=== PATIENT | female | born 1950 | race Caucasian/White ===

== ENCOUNTER 2016-10-25 23:11 | Emergency (ER) | payer MEDICAID ==
[~2016-10-25] VITALS: Ht 157.5 cm; Wt 72.6 kg
[~2016-10-25 23:11] MED LIST: ALEN70TA2 PO; ALPR0.25 PO; BUPRTAB3 PO; CYCL10TA3 PO; EST0625T PO; LEVO500T3 PO; LURA40TA PO; NOR5T PO; SIMV10TA84 PO; ZOLP-158 PO
[2016-10-25 23:53] LABS: Basophils # (auto) 0.1 uL; Basophils % (auto) 0.7 % (0.0-2.0); Eosinophils # (auto) 0.3 uL; Eosinophils % (auto) 3.4 % (0.0-7.0); Hematocrit 44.2 % (36.0-46.0); Hemoglobin 15.2 g/dL (12.2-16.2); Mean Corpuscular Hemoglobin 30.2 pg (28.0-32.0); Mean Corpuscular Hgb Conc. 34.5 g/dL (32.0-36.0); Mean Corpuscular Volume 87.6 fL (80.0-100.0); Mean Platelet Volume 9.4 fL (7.4-10.4); Monocytes % (auto) 11.1 % (0.0-12.0); Neutrophils # (auto) 4.8 uL; Neutrophils % (auto) 51.8 % (37.0-80.0); Platelet Count (auto) 296 10^3/uL (140-450); Red Cell Distribution Width 12.8 % (11.6-16.0); White Blood Cell 9.2 10^3/uL (4.4-10.8)
[2016-10-26 00:08] LABS: INR 0.99 (0.9-1.15); Partial Thromboplastin Time 25.7 sec (22.64-33.71); Prothrombin Time 10.8 sec (9.37-12.3)
[2016-10-26] MEDS ORDERED: LORazepam 2MG/ML-1ML VIAL IV ONE (00:30)
[2016-10-26 00:33] LABS: Albumin 3.2 g/dL (3.4-5.0); Anion Gap 13 (5-15); Aspartate Aminotransferase 18 U/L (15-37); BUN/Creatinine Ratio 9.2; Blood Urea Nitrogen 7 mg/dL (7-18); Calcium 9.1 mg/dL (8.5-10.1); Carbon Dioxide 20 mmol/L (21-32); Chloride 113 mmol/L (98-107); GFR African American 99 mL/min; GFR Non-African American 82 mL/min; Glucose 107 mg/dL (74-106); Potassium 3.5 mmol/L (3.5-5.1); Sodium 146 mmol/L (136-145)
[2016-10-26 00:36] LABS: Alkaline Phosphatase 74 U/L (45-117); Bilirubin, Total 0.4 mg/dL (0.2-1.0); Total Protein 7.2 g/dL (6.4-8.2)
[2016-10-26 04:49] VITALS: BP 113/67
[2016-10-26 06:35] LABS: Urine Bilirubin Negative (Negative); Urine Blood TRACE /uL (Negative); Urine Color Yellow (Yellow); Urine Glucose Normal (Normal); Urine Ketone Negative (Negative); Urine Mucus FEW (None Seen); Urine Nitrite Negative (Negative); Urine RBC 26 /hpf (0 - 4); Urine Squamous Epithelial Cell FEW /hpf (<5); Urine Urobilinogen Normal (Negative); Urine pH 5.5 (5.0-8.0)
== END 2016-10-26 05:09 | disposition home or self-care (01) ==
LOC: EDBD 23:11 → ER 23:16
DX: G47.00 Insomnia, unspecified (principal); F41.9 Anxiety disorder, unspecified; F31.9 Bipolar disorder, unspecified; K21.9 Gastro-esophageal reflux disease without esophagitis; E78.5 Hyperlipidemia, unspecified; Z79.899 Other long term (current) drug therapy
CPT/HCPCS: 36415; 71010; 80053; 81001; 84484; 85025; 85610; 85730; 93005; 94761; 96374; 99285; J2060

== ENCOUNTER 2017-06-06 08:46 | Emergency (ER) | payer MEDICAID ==
[~2017-06-06] VITALS: Ht 167.6 cm; Wt 63.5 kg
[~2017-06-06 08:46] MED LIST changes: +HYDR-4683 PO; +LEVO500T21 PO; -LEVO500T3 PO; -NOR5T PO
[2017-06-06 09:44] LABS: Basophils # (auto) 0.2 uL; Basophils % (auto) 2.4 % (0.0-2.0); Eosinophils # (auto) 0.6 uL; Eosinophils % (auto) 8.8 % (0.0-7.0); Hematocrit 46.3 % (36.0-46.0); Hemoglobin 15.6 g/dL (12.2-16.2); Lymphocytes # (auto) 1.7 uL; Lymphocytes % (auto) 25.8 % (10.0-50.0); Mean Corpuscular Hemoglobin 29.8 pg (28.0-32.0); Mean Corpuscular Hgb Conc. 33.7 g/dL (32.0-36.0); Mean Corpuscular Volume 88.3 fL (80.0-100.0); Monocytes # (auto) 0.4 uL; Monocytes % (auto) 6.1 % (0.0-12.0); Neutrophils # (auto) 3.7 uL; Neutrophils % (auto) 56.9 % (37.0-80.0); Nucleated Red Blood Cells % 0.1 %; Platelet Count (auto) 320 10^3/uL (140-450); Red Blood Cells 5.25 10^6/uL (4.0-5.20); Red Cell Distribution Width 12.9 % (11.8-14.3); White Blood Cell 6.5 10^3/uL (4.4-10.8)
[2017-06-06 10:15] LABS: Anion Gap 9 (5-15); BUN/Creatinine Ratio 8.9; Blood Urea Nitrogen 8 mg/dL (7-18); Calcium 8.9 mg/dL (8.5-10.1); Carbon Dioxide 25 mmol/L (21-32); Chloride 103 mmol/L (98-107); GFR African American 81 mL/min; GFR Non-African American 67 mL/min; Glucose 134 mg/dL (74-106); Potassium 4.1 mmol/L (3.5-5.1); Sodium 137 mmol/L (136-145)
[2017-06-06 10:30] VITALS: BP 116/73
[2017-06-06] MEDS ORDERED: methylPREDNISolone SOD SUCC 125 MG/2 ML VL IM ONE (10:45)
[2017-06-06] MEDS ORDERED: IPRATROPIUM BROM 0.5 MG/2.5ML INH SOL NEB ONE (10:45)
[2017-06-06] MEDS ORDERED: ALBUTEROL SULF 2.5 MG/0.5ML(0.5%) NEB SOLN NEB ONE (10:45)
== END 2017-06-06 11:12 | disposition home or self-care (01) ==
LOC: ER 08:46 → EDBD 08:46 → ER 11:12
DX: J45.901 Unspecified asthma with (acute) exacerbation (principal); K21.9 Gastro-esophageal reflux disease without esophagitis; E78.5 Hyperlipidemia, unspecified; F17.210 Nicotine dependence, cigarettes, uncomplicated
CPT/HCPCS: 36415; 71046; 80048; 84484; 85025; 93005; 94640; 96372; 99285; J2930

== ENCOUNTER 2019-05-30 18:18 | Inpatient (IN) | payer OTHER, MEDICAID ==
[~2019-05-30] VITALS: Ht 157.5 cm; Wt 69.4 kg
[~2019-05-30 18:18] MED LIST changes: -HYDR-4683 PO; +HYDR-4833 PO
[2019-05-30] MEDS ORDERED: ALBUTEROL SULF 2.5 MG/0.5ML(0.5%) NEB SOLN HHN STA (19:22)
[2019-05-30] MEDS ORDERED: IPRATROPIUM BROM 0.5 MG/2.5ML INH SOL NEB ONE (19:30)
[2019-05-30] MEDS ORDERED: methylPREDNISolone SOD SUCC 125 MG/2 ML VL IV ONE (19:45)
[2019-05-30 19:57] LABS: Basophils # (auto) 0.1 uL; Basophils % (auto) 1.1 % (0.0-2.0); Eosinophils # (auto) 0.1 uL; Eosinophils % (auto) 1.2 % (0.0-7.0); Hematocrit 43.1 % (36.0-46.0); Hemoglobin 14.8 g/dL (12.2-16.2); Lymphocytes % (auto) 41.4 % (10.0-50.0); Mean Corpuscular Hemoglobin 29.8 pg (28.0-32.0); Mean Corpuscular Hgb Conc. 34.3 g/dL (32.0-36.0); Monocytes # (auto) 0.6 uL; Monocytes % (auto) 12.2 % (0.0-12.0); Neutrophils # (auto) 2.1 uL; Neutrophils % (auto) 44.1 % (37.0-80.0); Nucleated Red Blood Cells % 0.2 %; Platelet Count (auto) 208 10^3/uL (140-450); Red Blood Cells 4.95 10^6/uL (4.0-5.20); Red Cell Distribution Width 12.4 % (11.8-14.3); White Blood Cell 4.7 10^3/uL (4.4-10.8)
[2019-05-30 20:21] LABS: INR 0.97 (0.9-1.15); Partial Thromboplastin Time 30.2 sec (23.64-32.05)
[2019-05-30 20:22] LABS: Calcium 8.6 mg/dL (8.5-10.1); Chloride 102 mmol/L (98-107); Potassium 3.6 mmol/L (3.5-5.1); Sodium 136 mmol/L (136-145)
[2019-05-30 20:33] LABS: Alanine Aminotransferase 44 U/L (13-56); Albumin 3.5 g/dL (3.4-5.0); Alkaline Phosphatase 76 U/L (45-117); Anion Gap 8 (5-15); Aspartate Aminotransferase 48 U/L (15-37); BUN/Creatinine Ratio 10.7; Bilirubin, Total 0.6 mg/dL (0.2-1.0); Blood Urea Nitrogen 8 mg/dL (7-18); Carbon Dioxide 26 mmol/L (21-32); GFR African American 99 mL/min; GFR Non-African American 82 mL/min; Glucose 114 mg/dL (74-106); Total Protein 7.2 g/dL (6.4-8.2)
[2019-05-30] MEDS ORDERED: TEMAZEPAM 15 MG CAP PO PRN (22:45)
[2019-05-31] MEDS: ALBUTEROL SULF 2.5 MG/0.5ML(0.5%) NEB SOLN NEB SCH ×4 (00:56→18:45)
[2019-05-31] MEDS: ACETAMINOPHEN 325 MG TAB PO PRN (03:04)
[2019-05-31] MEDS: guaiFENesin-DM 100/10mg/5ml SYR PO PRN ×2 (04:13→20:21)
[2019-05-31] MEDS: IPRATROPIUM BROM 0.5 MG/2.5ML INH SOL NEB SCH ×3 (06:50→18:44)
--- NOTE | 2019-05-31 07:59 | NUR ---
Telemetry admit from ER TARAS COLVIN admitted to Medical Surgical unit after SBAR received. Patient oriented to DANIELE CREWS, RN primary RN, unit, room, bed, and unit policies regarding patient care and visiting hours. Patient placed on bedside oxygen, weighed by bedscale and encouraged to call if they need any assistance. All questions and concerns addressed, patient verbalized understanding.
[2019-05-31] MEDS: buPROPion HCL 75 MG TAB PO SCH ×2 (08:30→20:21)
[2019-05-31] MEDS: cefTRIAXone 1GM/50ML D5W 50 ML IV SCH (09:00)
[2019-05-31] MEDS: FAMOTIDINE 20 MG TAB PO SCH ×2 (10:00→23:20)
[2019-05-31] MEDS ORDERED: ALBUTEROL MEDNEB 2.5 mg/3ml NEB ONE (11:29)
[2019-05-31 13:00] VITALS: BP 112/53
[2019-05-31] MEDS ORDERED: methylPREDNISolone SOD SUCC 40 MG/ML VL IV ONE (15:00)
[2019-05-31] MEDS ORDERED: OSELTAMIVIR 75 MG CAP PO ONE (15:00)
[2019-05-31] MEDS ORDERED: SODIUM CHLORIDE 0.9% 1,000 ML IV SCH (15:00)
[2019-05-31] MEDS ORDERED: ALBUTEROL SULF 2.5 MG/0.5ML(0.5%) NEB SOLN NEB PRN (15:00)
[2019-05-31 17:00] VITALS: BP 137/65
[2019-05-31 22:00] VITALS: BP 134/70
[2019-05-31] MEDS: methylPREDNISolone SOD SUCC 40 MG/ML VL IV SCH (23:19)
[2019-05-31] MEDS: ATORVASTATIN 20 MG TAB PO SCH (23:20)
[2019-05-31] MEDS: OSELTAMIVIR 75 MG CAP PO SCH (23:20)
[2019-06-01] MEDS: ALBUTEROL SULF 2.5 MG/0.5ML(0.5%) NEB SOLN NEB SCH ×4 (00:58→18:57)
--- NOTE | 2019-06-01 00:58 | NUR ---
Respiratory note: PT REFUSED HHN TX AT THIS TIME. PT REQUESTED TO LET HER SLEEP. Addendum: 06/01/19 at 0104 by PARKER DAVILA JR, RT RT NO DISTRESS NOTED AT THIS TIME. HR 97 SPO2 94% ON 2L
[2019-06-01 05:16] VITALS: BP 136/72
[2019-06-01 06:26] LABS: Potassium 3.9 mmol/L (3.5-5.1)
[2019-06-01] MEDS: IPRATROPIUM BROM 0.5 MG/2.5ML INH SOL NEB SCH ×3 (06:35→18:57)
[2019-06-01 06:36] LABS: BUN/Creatinine Ratio 13.8; Calcium 8.2 mg/dL (8.5-10.1); Magnesium 2.2 mg/dL (1.6-2.6)
[2019-06-01] MEDS: buPROPion HCL 75 MG TAB PO SCH ×2 (06:46→19:44)
--- NOTE | 2019-06-01 07:30 | NUR ---
Opening Shift Note Assumed care of patient, awake and alert. No S/S of distress/SOB or pain. For safety patients bed is locked, in the lowest position with 2 side rails up and the call light is with in reach. l Instructed on POC and to call for assist PRN, will continue to monitor for any changes in condition. .
[2019-06-01 08:00] VITALS: BP 124/61
[2019-06-01 09:00] VITALS: BP 124/61
[2019-06-01] MEDS: cefTRIAXone 1GM/50ML D5W 50 ML IV SCH (09:04)
[2019-06-01] MEDS: FAMOTIDINE 20 MG TAB PO SCH ×2 (09:05→22:13)
[2019-06-01] MEDS: OSELTAMIVIR 75 MG CAP PO SCH ×2 (09:05→22:11)
[2019-06-01] MEDS: methylPREDNISolone SOD SUCC 40 MG/ML VL IV SCH ×2 (09:05→22:10)
--- NOTE | 2019-06-01 11:20 | NUR ---
Dr. Steele at bedside to assess patient and discuss the plan of care. Received orders, will document them and follow them through.
[2019-06-01] MEDS: SODIUM CHLORIDE 0.9% 1,000 ML IV SCH ×2 (12:33→20:05)
[2019-06-01] MEDS: FUROSEMIDE 20 MG/2 ML VIAL IV SCH ×2 (12:33→22:10)
[2019-06-01 13:00] VITALS: BP 129/69
[2019-06-01] MEDS: AZITHROMYCIN 500MG/ 250ML 250 ML IV SCH (14:24)
[2019-06-01 17:00] VITALS: BP 131/65
[2019-06-01] MEDS: ACETAMINOPHEN 325 MG TAB PO PRN (19:45)
[2019-06-01 21:52] VITALS: BP 128/70
[2019-06-01] MEDS: ATORVASTATIN 20 MG TAB PO SCH (22:11)
[2019-06-01] MEDS: guaiFENesin-DM 100/10mg/5ml SYR PO PRN (22:21)
[2019-06-02] MEDS: ALBUTEROL SULF 2.5 MG/0.5ML(0.5%) NEB SOLN NEB SCH ×3 (00:45→12:58)
--- NOTE | 2019-06-02 00:45 | NUR ---
Respiratory note: PT SEEN FOR SCHEDULED MED NEB TX AT 0045. PT REFUSED TX AT THIS TIME STATING THAT SHE WOULD LIKE TO REST. NO DISTRESS NOTED, PT WAS SLEEPING WHEN ENTERING THE ROOM. HR 96 RR 16 POX 94% ON ROOM AIR.
[2019-06-02] MEDS: guaiFENesin-DM 100/10mg/5ml SYR PO PRN ×2 (02:21→09:19)
--- NOTE | 2019-06-02 03:00 | NUR ---
Received report from DINA Urban and assumed care.
[2019-06-02 04:44] VITALS: BP 142/91
[2019-06-02] MEDS: SODIUM CHLORIDE 0.9% 1,000 ML IV SCH (05:57)
[2019-06-02] MEDS: buPROPion HCL 75 MG TAB PO SCH (06:21)
[2019-06-02 06:44] LABS: Basophils # (auto) 0 uL; Basophils % (auto) 0.2 % (0.0-2.0); Eosinophils # (auto) 0 uL; Hematocrit 39.7 % (36.0-46.0); Hemoglobin 13.8 g/dL (12.2-16.2); Lymphocytes # (auto) 1.2 uL; Lymphocytes % (auto) 15.9 % (10.0-50.0); Mean Corpuscular Hemoglobin 30.7 pg (28.0-32.0); Mean Corpuscular Hgb Conc. 34.8 g/dL (32.0-36.0); Mean Corpuscular Volume 88.3 fL (80.0-100.0); Monocytes # (auto) 0.7 uL; Monocytes % (auto) 9.2 % (0.0-12.0); Neutrophils # (auto) 5.8 uL; Neutrophils % (auto) 74.7 % (37.0-80.0); Nucleated Red Blood Cells % 0.1 %; Platelet Count (auto) 205 10^3/uL (140-450); Red Cell Distribution Width 12.5 % (11.8-14.3); White Blood Cell 7.8 10^3/uL (4.4-10.8)
[2019-06-02 07:03] LABS: Potassium 4.1 mmol/L (3.5-5.1)
[2019-06-02 07:14] LABS: BUN/Creatinine Ratio 14.9; Bilirubin, Total 0.4 mg/dL (0.2-1.0); Calcium 8.4 mg/dL (8.5-10.1); Magnesium 2.2 mg/dL (1.6-2.6); Phosphorus 2.9 mg/dL (2.5-4.90); Total Protein 6.7 g/dL (6.4-8.2)
--- NOTE | 2019-06-02 08:00 | NUR ---
Opening Shift Note Assumed care of patient, awake and alert, sitting up in bed. No S/S of distress/SOB or pain. Instructed on POC and to call for assist PRN, will continue to monitor for changes Q1hr and PRN.
[2019-06-02] MEDS: IPRATROPIUM BROM 0.5 MG/2.5ML INH SOL NEB SCH ×2 (08:02→12:58)
[2019-06-02] MEDS: cefTRIAXone 1GM/50ML D5W 50 ML IV SCH (08:36)
[2019-06-02 09:00] VITALS: BP 126/72
[2019-06-02] MEDS: AZITHROMYCIN 500MG/ 250ML 250 ML IV SCH (09:19)
[2019-06-02] MEDS: methylPREDNISolone SOD SUCC 40 MG/ML VL IV SCH (09:19)
[2019-06-02] MEDS: OSELTAMIVIR 75 MG CAP PO SCH (09:19)
[2019-06-02] MEDS: FAMOTIDINE 20 MG TAB PO SCH (09:19)
[2019-06-02] MEDS: FUROSEMIDE 20 MG/2 ML VIAL IV SCH (09:19)
[2019-06-02] MEDS: ACETAMINOPHEN 325 MG TAB PO PRN (09:32)
--- NOTE | 2019-06-02 11:03 | NUR ---
Hospitalist Rounding Dr. Cortes at bedside. Patient was told she would be discharged today, she then informed Dr. Cortes that she doesn't want her as her doctor anymore. MD notified patient that she will put her discharge order in and write prescriptions for home medications.
[2019-06-02] MEDS ORDERED: OSEL75CA11 PO (11:31)
[2019-06-02] MEDS ORDERED: AZIT500T PO (11:32)
[2019-06-02] MEDS ORDERED: ALBUAER3 IN (11:32)
[2019-06-02] MEDS ORDERED: DEXT1SYP9 PO (11:33)
[2019-06-02 12:05] VITALS: BP 126/72
--- NOTE | 2019-06-02 12:36 | NUR ---
Discharge Patient is discharged for home, she will make phone call and inform RN of last picker time.
--- NOTE | 2019-06-02 12:58 | NUR ---
Respiratory note: PT REFUSED Q6 TREATMENT. SHE SAID SHE IS GOING HOME. EXPLAINED THE BENEFITS OF TREATMENT AND TO HAVE RT PAGED IF SHE CHANGES HER MIND.
--- NOTE | 2019-06-02 15:02 | NUR ---
Discharge instructions given as ordered. Encourage to follow up with PMD as instructed. All questions and concerns addressed. Patient verbalized understanding. Medication reconciliation form completed and copy given to patient. IV removed with catheter intact and pressure dressing applied. Patient taken to vehicle via wheelchair with all personal belongings, accompanied by staff and family member. No distress noted at time of departure.
[2019-06-02] MEDS ORDERED: OSELTAMIVIR 30 MG CAP PO SCH (22:00)
[2019-06-02] MEDS ORDERED: OSELTAMIVIR 75 MG CAP PO SCH (22:00)
== END 2019-06-02 15:02 | disposition home or self-care (01) | DRG 193 ==
LOC: ER 18:20 → OVERFLOW 18:21 → WEST WING 05-31 07:59
PROVIDERS: ADMIT Nurse Practitioner; ATTEND Internal Medicine
DX: J10.1 Influenza due to other identified influenza virus with other respiratory manifestations (principal); J96.20 Acute and chronic respiratory failure, unspecified whether with hypoxia or hypercapnia; E87.3 Alkalosis; J45.901 Unspecified asthma with (acute) exacerbation; F41.9 Anxiety disorder, unspecified; F32.9 Major depressive disorder, single episode, unspecified; R00.0 Tachycardia, unspecified; J20.9 Acute bronchitis, unspecified; E78.5 Hyperlipidemia, unspecified; Z80.9 Family history of malignant neoplasm, unspecified; Z81.8 Family history of other mental and behavioral disorders; Z82.3 Family history of stroke; Z82.49 Family history of ischemic heart disease and other diseases of the circulatory system; K21.9 Gastro-esophageal reflux disease without esophagitis; Z88.8 Allergy status to other drugs, medicaments and biological substances; Z98.51 Tubal ligation status; Z90.49 Acquired absence of other specified parts of digestive tract
CPT/HCPCS: 36415; 36600; 71046; 80048; 80053; 80061; 82805; 83036; 83735; 83880; 84100; 84484; 85025; 85379; 85610; 85730; 87804; 93005; 94640; 96361; 96365; 96375; G0378; J0696